=== PATIENT | male | born 2000 | race Hispanic/Latino ===

== ENCOUNTER 2020-05-19 22:38 | Emergency (ER) | payer SELFPAY ==
[2020-05-19 22:40] VITALS: BP 153/80; PULSE 73; RESP 14; TEMP 36.8; O2SAT 99; BMI 33.6
--- NOTE | 2020-05-19 22:56 | ED.VIS.GEN ---
History of Present Illness Chief Complaint: Dental Informant: Patient Narrative: 20-year-old male with no significant medical history presents with pain in his left molar. He states is been ongoing for 2 days. He is tried Tylenol at home but this is not helping. He does not know if he injured his tooth. He is not had any significant facial swelling. He does state that the tooth focally hurts and it rubs up on his other tooth which makes that one hurt. He states he recently moved here from [place] and has no care providers. Call the dentist today and they stated it would be 2 weeks until he can get in the office. He did not make an appointment. He states he will make one tomorrow. Past Medical History - Allergies and Home Meds Allergies/Adverse Reactions: Allergies Penicillins [PCN] Allergy (Verified 05/19/20 22:39) Rash Primary Care Physician: NOT,DEFINED [NON-STAFF] - Prior records reviewed: Yes Past Medical History: None Lives: Alone Smoking Status: Unknown if ever smoked Alcohol: None Drugs: None Review of Systems General: Denies: Chills, Fever, Sweats Eyes: Denies: Visual changes - bilaterally, Diplopia ENT: Reports: - - Dental pain around left molar. Denies: Rhinorrhea, Sore throat Cardiovascular: Denies: Chest pain, Palpitations Respiratory: Denies: Dyspnea, Cough, Dyspnea on exertion Gastrointestinal: Denies: Abdominal pain, Nausea, Vomiting, Diarrhea, Melena, Hematochezia Genitourinary: Denies: Dysuria, Hematuria, Frequency Musculoskeletal: Denies: Back pain, Extremity Pain Skin: Denies: Rash, Wounds Neurological: Denies: Headache, Weakness, Numbness Physical Exam Vital Signs/Narrative: Vital Signs Temp Pulse Resp BP Pulse Ox 05/19/20 22:40 98.3 F 73 14 153/80 H 99 Inital Vital Signs reviewed: Yes General: Well nourished, Well developed, No Acute Distress Head: Normocephalic, Atraumatic Eyes: Perrl, EOMI ENT: Moist mucous membranes, - - Percussion tenderness over the left molar. There is no obvious abscess. [place] mucosa was normal. The gingiva are normal. Neck: No lymphadenopathy Cardiovascular: Regular rate, Regular rhythm Respiratory: No distress, CTA bilaterally Skin: Normal color, No rash Neurological: Alert, Oriented x3 Psychological: Normal affect, Normal Mood Diagnostic/Tx/Re-eval - Medical Decision Making Presents with dental pain. He states his been ongoing for 2 days and is worsening. He denies known injury. He does have percussion tenderness over this tooth. Patient was given dental referral sheet. He will be started on clindamycin due to penicillin allergy. He was given Naprosyn for home. He is given return precautions. Impression: 1. Dental pain 2. Dental infection ED Disposition - Plan for ED Patient: Disposition: Home or Assisted Living Instructions: Dental Abscess, ED Tooth Pain Prescriptions: Clindamycin [Cleocin] 450 mg PO TID #90 cap Prescription Printed Naproxen [Naprosyn] 500 mg PO BID PRN #30 tab Prescription Printed Referrals: NOT,DEFINED [NON-STAFF] -
[2020-05-19] MEDS: Naproxen 500 MG Tablet PO (23:07)
[2020-05-19] MEDS: Clindamycin HCl 150 MG Capsule 450 MG PO (23:07)
== END 2020-05-19 23:12 | disposition home or self-care (01) ==
LOC: ED 23:03
PROVIDERS: Emergency Provider Student in an Organized Health Care Education/Training Program
DX: K04.7 Periapical abscess without sinus (principal)
CPT/HCPCS: 99283